=== PATIENT | male | born 1955 | race Two or more races ===

== ENCOUNTER 2018-10-08 21:59 | Emergency (ER) | payer BC, OTHER ==
[~2018-10-08] VITALS: Ht 182.9 cm; Wt 95.7 kg
[2018-10-08 22:00] VITALS: BP 157/92; PULSE 94; RESP 18; Ht 182.9 cm; Wt 95.7 kg
[2018-10-08] MEDS ORDERED: morphine 4 MG/ML VIAL IM STA (23:16)
--- NOTE | 2018-10-08 23:17 | ERD ---
ER Documentation Chief Complaint Chief Complaint RIGHT HIP PAIN X3-4HRS; SCIATICA; SCHED MRI FOR THIS TUESDAY; AMBULATING HPI This is a 63-year-old male who presents here in the emergency department for a reproducing lower back pain and radiates to his bilateral legs. Has history of sciatica and has schedule for MRI this Tuesday. Stated that the reason why he is here because his pain is uncontrolled and asks for a pain medication. Denies headache, head injury, loss of consciousness, dizziness, neck pain, neck stiffness, throat pain, difficulty swallowing, difficulty breathing lying flat, shoulder pain, chest pain, abdominal pain, nausea, vomiting, constipation, diarrhea, urinary symptoms, hematuria, loss of bowel and bladder control, trauma, injury, falls, difficulty walking due to pain, numbness or tingling sensation, calf pain, recent travel, recent major surgery in the last 3 weeks, calf pain, recent long travel, recent exposure to any illness, recent antibiotic use in the last 3 months, fever, chills, seizures. Past medical history: Sciatica. Chronic pain. Surgical history: Social: Denies smoking, use of alcoholic beverages, use of illegal drugs. ROS All systems reviewed and are negative except as per history of present illness. Medications Home Meds Active Scripts Tramadol HCl (Tramadol HCl) 50 Mg Tablet, 50 MG PO Q4 PRN for SEVERE PAIN LEVEL 7-10, #4 TAB Prov:MILI ENCARNACION 10/08/18 Ibuprofen* (Motrin*) 800 Mg Tab, 800 MG PO Q6H PRN for PAIN LEVEL 1-5, #20 TAB Prov:MILI ENCARNACION 10/08/18 Physical Exam Vitals Vital Signs Date Temp Pulse Resp B/P (MAP) Pulse Ox O2 O2 Flow FiO2 Time Delivery Rate 10/08/18 98.1 94 18 157/92 98 22:00 (113) Physical Exam Const: No acute distress Head: Atraumatic Eyes: Normal Conjunctiva ENT: Normal External Ears, Nose and Mouth. Neck: Full range of motion. No meningismus. Resp: Clear to auscultation bilaterally Cardio: Regular rate and rhythm, no murmurs Abd: Soft, non tender, non distended. Normal bowel sounds Skin: No petechiae or rashes Back: No midline or flank tenderness. No signs of direct trauma. T-spine/L-spine are midline and is good and full range of motion without discoloration/tenderness. Positive bilateral straight leg test. Positive bilateral cross straight leg test. Sensation are intact to bilateral lower extremities. No neurovascular deficits. Ambulatory with steady gait. Ext: No cyanosis, or edema Neur: Awake and alert. No neurological deficits. Psych: Normal Mood and Affect Results 24 hrs Current Medications Medications Dose Sig/Princess Start Time Status Last (Trade) Ordered Route PRN Stop Time Admin Dose Reason Admin Morphine 4 mg ONCE STAT 10/08/18 DC 10/08/18 Sulfate IM 23:16 23:33 (morphine) 10/08/18 23:17 10 mg ONCE ONCE 10/08/18 DC 10/08/18 Dexamethasone IM 23:30 23:32 (Decadron) 10/08/18 23:31 Procedures/MDM Diagnostic tests: Clinical exam. Treatment: Morphine IM. Dexamethasone IM. Re-evaluation: Denies pain. No saddle anesthesia. Stated that he feels much better at this time. No neurovascular deficits. No neurological deficits. Patient and family members stated that they are comfortable going home. Differential diagnosis I have low suspicion for AAA, pyelonephritis, nephrolithiasis, pyelonephritis, septic stone, obstructing kidney stones. Final diagnosis: Sciatica. Chronic pain. Prescription: Flexeril. Motrin. Omeprazole. [place] for severe pain. Follow-up with PCP in the next 24-48 hours. Follow-up with pain specialist in the next 24-48 hours. Come back here in the emergency department for any new symptoms or any worsening symptoms. All questions and concerns were answered. Patient and family members verbalized understanding and agreed with plan of care. Hemodynamically stable on discharge. Departure Diagnosis: Primary Impression: Chronic pain Additional Impression: Sciatica Condition: Stable Additional Instructions: Follow-up with PCP in the next 24-48 hours. Follow-up with pain specialist in the next 24-48 hours. Come back here in the emergency department for any new symptoms or any worsening symptoms. MILI ENCARNACION Oct 08, 2018 23:17
[2018-10-08] MEDS ORDERED: DEXAMETHASONE 10 MG/ML 1 ML INJ IM ONE (23:30)
[2018-10-08] MEDS ORDERED: IBUP800T48 PO (23:39)
[2018-10-08] MEDS ORDERED: TRAM50TA2 PO (23:40)
== END 2018-10-09 00:07 | disposition home or self-care (01) ==
LOC: FTE 21:59
DX: M54.40 Lumbago with sciatica, unspecified side (principal)
CPT/HCPCS: 96372; 99284; J1100; J2270